=== PATIENT | male | born 1950 | race Caucasian/White ===

== ENCOUNTER → 2019-01-19 | Outpatient (CLI) | payer MEDICARE, OTHER ==
[2014-07-25 09:53] VITALS: BP 116/72
[~2019-01-19] MED LIST: ACIPHEX20 MG PO; ALTACE2.5 M1 PO; ASPIRIN 32325 MG/TAB PO; CARDI-OMEGA1000 MG PO; LEVITRA20 MG PO; METOPROLOL TART50 MG PO; PREVACID 30MG30 M1 PO; RAMIPRIL2.5 MG PO; VYTORIN 10 MG-41 TAB PO
== END ==
LOC: CARDLAB 12-30 12:09
DX: G47.8 Other sleep disorders (principal); G47.10 Hypersomnia, unspecified